=== PATIENT | male | born 1950 | race Caucasian/White ===

== ENCOUNTER → 2017-01-20 | Outpatient (CLI) | payer OTHER, MEDICARE ==
--- NOTE | 2017-01-20 19:10 | ECHOCARDIOGRAM REPORT ---
*NOTICE TO RECEIVING DEMOCRAT AGENCY This information is strictly Confidential and protected under [place] law. [place] law prohibits you from making any further disclosure of this information unless further disclosure is expressly permitted by the written consent of the person to whom it pertains or is authorized by law. A general authorization for the release of medical or other information is not sufficient for this purpose. Hospital accepts no responsibility if the information is made available to any other person, INCLUDING THE PATIENT. Interpretation Summary * Name: JESSICA POSADA JR Study Date: 01/20/2017 08:27 AM BP: 145/80 mmHg * Patient Location: [facility] [place] HR: 62 * : 1950 (M/d/yyyy) Gender: Male Height: 70 in * Age: 66 yrs Ethnicity: CA Weight: 178 lb * Performed By: Dannielle Moses RDCS * * Reason For Study: LBBB, SOB * BSA: 2.0 m2 * History: SOB, LEFT BUNDLE BRANCH BLOCK * Normal biventricular systolic function. * Mild concentric left ventricular hypertrophy. * Left ventricular diastolic dysfunction. * Normal chamber dimensions. * Trace pulmonic and mitral regurgitation. * No significant valvular abnormalities. Procedure Details * A complete two-dimensional transthoracic echocardiogram was performed (2D, M-mode, Doppler and color flow Doppler). Left Ventricle * The left ventricle is normal in size. * There is mild concentric left ventricular hypertrophy. * Ejection Fraction = 55-60%. * Left ventricular systolic function is low normal. * A full diastolic examination was done with clinical findings of Class I diastolic dysfunction. * Septal motion is consistent with conduction abnormality. * The left ventricular wall motion is normal. Right Ventricle * The right ventricle is normal in size and function. Atria * The left atrial size is normal. * Right atrial size is normal. * No ASD detected; PFO is not assessed. Mitral Valve * The mitral valve is normal. * There is no mitral valve stenosis. * There is trace mitral regurgitation. Tricuspid Valve * The tricuspid valve is normal. * There is no tricuspid stenosis. * No tricuspid regurgitation. Aortic Valve * The aortic valve is trileaflet. * The aortic valve opens well. * Aortic stenosis is absent. * No aortic regurgitation is present. Pulmonic Valve * The pulmonic valve is not well visualized. * Trace pulmonic valvular regurgitation. Great Vessels * The aortic root is normal size. Pericardium/Pleural * There is no pericardial effusion. Great Vessels * Normal inferior vena cava diameter and respiratory variation suggests normal central venous pressure. MMode 2D Measurements and Calculations IVSd 1.2 cm IVSs 1.2 cm LVIDd 4.8 cm LVIDs 3.5 cm LVPWd 1.2 cm LVPWs 1.6 cm IVS/LVPW 1.0 FS 28.6 % EDV(Teich) 110.0 ml ESV(Teich) 49.5 ml EF(Teich) 54.9 % EDV(cubed) 113.8 ml ESV(cubed) 41.5 ml EF(cubed) 63.6 % % IVS thick 4.2 % % LVPW thick 31.4 % LV mass(C)d 220.2 grams LV mass(C)dI 110.8 grams/m\S\2 LV mass(C)s 171.0 grams LV mass(C)sI 86.1 grams/m\S\2 SV(Teich) 60.4 ml SI(Teich) 30.4 ml/m\S\2 SV(cubed) 72.3 ml SI(cubed) 36.4 ml/m\S\2 Ao root diam 3.1 cm Ao root area 7.7 cm\S\2 LA dimension 3.5 cm LA/Ao 1.1 LVAd ap4 30.0 cm\S\2 LVLd ap4 8.7 cm EDV(MOD-sp4) 86.6 ml EDV(sp4-el) 87.5 ml LVAs ap4 17.2 cm\S\2 LVLs ap4 6.9 cm ESV(MOD-sp4) 38.4 ml ESV(sp4-el) 36.2 ml EF(MOD-sp4) 55.7 % EF(sp4-el) 58.7 % LVAd ap2 30.3 cm\S\2 LVLd ap2 8.8 cm EDV(MOD-sp2) 87.1 ml EDV(sp2-el) 88.8 ml LVAs ap2 18.1 cm\S\2 LVLs ap2 7.3 cm ESV(MOD-sp2) 39.9 ml ESV(sp2-el) 38.2 ml EF(MOD-sp2) 54.2 % EF(sp2-el) 57.0 % LVLd %diff 0.59 % EDV(MOD-bp) 87.0 ml LVLs %diff 4.2 % ESV(MOD-bp) 40.2 ml EF(MOD-bp) 53.8 % SV(MOD-sp4) 48.3 ml SI(MOD-sp4) 24.3 ml/m\S\2 SV(MOD-sp2) 47.2 ml SI(MOD-sp2) 23.8 ml/m\S\2 SV(MOD-bp) 46.8 ml SI(MOD-bp) 23.6 ml/m\S\2 SV(sp4-el) 51.3 ml SI(sp4-el) 25.8 ml/m\S\2 SV(sp2-el) 50.6 ml SI(sp2-el) 25.5 ml/m\S\2 Doppler Measurements and Calculations MV E max massiel 69.0 cm/sec MV A max massiel 79.1 cm/sec MV E/A 0.87 MV dec time 0.25 sec Ao V2 max 80.9 cm/sec Ao max PG 2.6 mmHg Ao max PG (full) 0.40 mmHg LV V1 max PG 2.2 mmHg LV V1 max 74.5 cm/sec TR max massiel 155.0 cm/sec
== END | disposition home or self-care (01) ==
LOC: C.CPL 08:09
PROVIDERS: ATTEND Family Medicine
DX: R06.02 Shortness of breath (principal); I44.7 Left bundle-branch block, unspecified

== ENCOUNTER → 2017-05-26 | Outpatient (CLI) | payer OTHER, MEDICARE ==
--- NOTE | 2017-05-26 11:05 | DIAGNOSTIC IMAGING REPORT ---
CT OF THE ABDOMEN WITH AND WITHOUT CONTRAST LIVER PROTOCOL CLINICAL HISTORY: Hepatic granuloma. COMPARISON STUDY: No previous studies for comparison. TECHNIQUE: Unenhanced, arterial and portal venous phase imaging of the abdomen was performed. Injection of 93 cc Optiray 320 IV was uneventful. FINDINGS: Liver morphology is normal. No hepatic lesions are identified. The main, left and right portal veins are patent. The spleen, adrenal glands, kidneys and pancreas are normal. There is no biliary or pancreatic ductal dilatation. There is extensive atherosclerotic plaque of the abdominal aorta. The abdominal aorta measures up to 2.5 cm. The caliber and wall thickness of visualized small and large bowel are normal. There is no abdominal ascites or lymphadenopathy. No suspicious skeletal lesions are identified. IMPRESSION: 1. Unremarkable CT of the liver. No hepatic lesions. 2. No biliary or pancreatic ductal dilatation. 3. Extensive atherosclerotic plaque of the abdominal aorta which is ectatic but not aneurysmally dilated. Electronically signed by: Pranay Vega M.D. 05/26/2017 11:04 AM Dictated Date/Time: 05/26/2017 10:31 AM
== END ==
LOC: C.CTS 09:46
PROVIDERS: ATTEND Registered Nurse
DX: K75.3 Granulomatous hepatitis, not elsewhere classified (principal)

== ENCOUNTER → 2017-06-04 | Day surgery (SDC) | payer OTHER, MEDICARE ==
[2017-05-21 07:36] VITALS: Ht 179.1 cm; Wt 76.8 kg
[~2017-06-04] VITALS: Ht 179.1 cm; Wt 76.8 kg
[~2017-06-04] MED LIST: FENTANYL CITRATE INJ 50 MCG/1 ML 2 ML VIAL ONE; LIDOCAINE HCL 2% 2 ML VIAL (20MG/ML) ONE; MIDAZOLAM HCL 1 MG/ML 2ML VIAL ONE; OPTIRAY 320 IV PRN; PROPOFOL IV EMULSION 10 MG/ML 20 ML VIAL IV ONE
--- NOTE | 2017-06-04 13:05 | Endo History and Physical ---
History & Physical Date of Service: Jun 04, 2017. Chief Complaint: SCREENING, RECENT ENTERITIS/INFECTION OF BOWEL Referring Physician: Dr. Dominique History of Present Illness 67 yo CM who presents for screening colonoscopy and push enteroscopy secondary to recent enteritis. Past Surgical History Hx Cardiac Surgery: No Hx Internal Defibrillator: No Hx Pacemaker: No Hx Abdominal Surgery: No Hx of Implantable Prosthesis: No Hx Post-Op Nausea and Vomiting: No Hx Cancer Surgery: No Hx Thoracic Surgery: No Hx Orthopedic: Yes (LT/RT RCR, LT CTR) Hx Urinary Tract Surgery: No Family History Colon CA Social History Smoking Status: Never Smoker Hx Substance Use: No Hx Alcohol Use: Yes (4 BEERS/DAY) Allergies Coded Allergies: No Known Allergies (Unverified , 06/04/17) Current Medications Reported Home Medications Medications Dose Route/Sig Max Daily Dose Days Date Category [None] 06/04/17 Reported Vital Signs Weight (Kilograms): 76.82 Height (Feet): 5 Height (Inches): 10.5 Date Time Temp Pulse Resp B/P (MAP) Pulse Ox O2 Delivery O2 Flow Rate FiO2 06/04/17 11:58 36.6 63 20 141/71 (94) 97 Room Air Physical Exam General Appearance: WD/WN, no apparent distress Respiratory/Chest: Auscultation: breath sounds normal Cardiovascular: Heart Auscultation: RRR Abdomen: Bowel Sounds: normal Inspection & Palpation: soft, non-distended, no tenderness, guarding & rebound Assessment and Plan Assessment: 67 yo CM who presents for screening colonoscopy and push enteroscopy secondary to recent enteritis. Plan: Proceed with Push enteroscopy and colonoscopy.
--- NOTE | 2017-06-04 13:34 | Discharge Instructions ---
Endoscopy Patient Instructions Date / Procedure(s) Performed Jun 04, 2017. Colonoscopy Allergy Information Coded Allergies: No Known Allergies (Unverified , 06/04/17) Discharge Date / Findings Jun 04, 2017. EGD: Esophageal stricture s/p dilation with passage of endoscope, Mid- esophageal biopsies, Gastric antrum biopises, Duodenitis s/p biopsies Colonoscopy: Random colon biopsies, Diverticulosis, Internal hemorrhoids Medication Instructions 1) Start Protonix 40mg by mouth each morning 1/2 hour prior to breakfast. Provider Instructions Activity Restrictions - No exercising or heavy lifting for 24 hours. - Do not drink alcohol the day of the procedure. - Do not drive a car or operate machinery until the day after the procedure. - Do not make any important decisions or sign important papers in 24 hours after the procedure. Following Day: - Return to full activity which may include returning to work/school. Diet Start your diet with liquids and light foods (jello, soup, juice, toast). Then eat your usual diet if not nauseated. Treatment For Common After Affects For mild abdominal pain, bloating, or excessive gas: - Rest - Eat lightly - Lie on right side Follow-Up Information Follow-up with BERNA Perez as scheduled Anesthesia Information What You Should Know You have had a procedure that required some medicine to reduce anxiety and discomfort. This treatment is called moderate sedation. After receiving the treatment, you may be sleepy, but you will be able to breathe on your own. The effects of the treatment may last for several hours. Follow these instructions along with Activity/Diet recommendations noted above: * Do NOT do anything where dizziness or clumsiness would be dangerous. * Rest quietly at home today, then you can be up and about tomorrow. * Have a responsible person stay with you the rest of today. * You may have had an I.V. today. If so, you may take the dressing off later today. Recommendations Call your doctor if: * Trouble breathing * Continuous vomiting for more than 24 hours * Temperature above 101 degrees * Severe abdominal pain or bloating * Pain not relieved by pain medicine ordered * There is increased drainage or redness from any incision * A large amount of rectal bleeding greater than 2-3 tablespoons. (If you had a polyp/s removed or have hemorrhoids, a small amount of blood - from the rectum is to be expected.) * You have any unanswered questions or concerns. IN THE EVENT OF A SERIOUS EMERGENCY, GO TO THE NEAREST EMERGENCY ROOM Your discharge instructions were prepared by provider Matthew Awan. Patient Instructions Signature Page Donny Tejeda Patient (or Guardian) Signature/Date: I have read and understand the instructions given to me by my caregivers. Caregiver/RN/Doctor Signature/Date: The above-named patient and/or guardian has received patient instructions on this date. + Original Patient Signature Page (only) stays with chart. Please make copy for patient.
--- NOTE | 2017-06-04 13:40 | GI REPORT ---
Procedure Date: 06/04/2017 12:43 PM Procedure: Upper GI endoscopy Indications: Enteritis Medicines: Monitored Anesthesia Care Complications: No immediate complications. Estimated Blood Loss: Estimated blood loss: none. Procedure: Pre-Anesthesia Assessment: - Prior to the procedure, a History and Physical was performed, and patient medications and allergies were reviewed. The patient's tolerance of previous anesthesia was also reviewed. The risks and benefits of the procedure and the sedation options and risks were discussed with the patient. All questions were answered, and informed consent was obtained. Prior Anticoagulants: The patient has taken no previous anticoagulant or antiplatelet agents. ASA Grade Assessment: II - A patient with mild systemic disease. After reviewing the risks and benefits, the patient was deemed in satisfactory condition to undergo the procedure. After obtaining informed consent, the endoscope was passed under direct vision. Throughout the procedure, the patient's blood pressure, pulse, and oxygen saturations were monitored continuously. The scope was introduced through the mouth, and advanced to the fourth part of duodenum. The upper GI endoscopy was accomplished without difficulty. The patient tolerated the procedure well. Findings: One moderate benign-appearing, intrinsic stenosis was found. This measured 1 cm (inner diameter) x less than one cm (in length) and was traversed. The stricture was dilated with passage of pediatric colonoscope. Multiple biopsies were obtained with cold forceps for histology in the middle third of the esophagus. The entire examined stomach was normal. Biopsies were taken with a cold forceps for Helicobacter pylori testing. Multiple localized erosions without bleeding were found in the first part of the duodenum. Biopsies were taken with a cold forceps for histology. Impression: - Benign-appearing esophageal stenosis. - Normal stomach. Biopsied. - Duodenal erosions without bleeding. Biopsied. - Multiple biopsies were obtained in the middle third of the esophagus. Recommendation: - Resume previous diet. - Continue present medications. - Await pathology results. - Return to GI office as previously scheduled. Matthew Awan, DO 06/04/2017 1:39:28 PM This report has been signed electronically. Note Initiated On: 06/04/2017 12:43 PM I attest to the content of the Intraoperative Record and orders documented therein, exceptions below
--- NOTE | 2017-06-04 13:43 | GI REPORT ---
Procedure Date: 06/04/2017 12:46 PM Procedure: Colonoscopy Indications: Screening for colorectal malignant neoplasm Medicines: Monitored Anesthesia Care Complications: No immediate complications. Estimated Blood Loss: Estimated blood loss: none. Procedure: Pre-Anesthesia Assessment: - Prior to the procedure, a History and Physical was performed, and patient medications and allergies were reviewed. The patient's tolerance of previous anesthesia was also reviewed. The risks and benefits of the procedure and the sedation options and risks were discussed with the patient. All questions were answered, and informed consent was obtained. Prior Anticoagulants: The patient has taken no previous anticoagulant or antiplatelet agents. ASA Grade Assessment: II - A patient with mild systemic disease. After reviewing the risks and benefits, the patient was deemed in satisfactory condition to undergo the procedure. After I obtained informed consent, the scope was passed under direct vision. Throughout the procedure, the patient's blood pressure, pulse, and oxygen saturations were monitored continuously. The scope was introduced through the anus and advanced to the terminal ileum. The colonoscopy was performed without difficulty. The patient tolerated the procedure well. The quality of the bowel preparation was good. The terminal ileum, ileocecal valve, appendiceal orifice, and rectum were photographed. Findings: Multiple small-mouthed diverticula were found in the sigmoid colon. Non-bleeding internal hemorrhoids were found during retroflexion. The hemorrhoids were small. Several random biopsies were obtained with cold forceps for histology in the entire colon. Impression: - Diverticulosis in the sigmoid colon. - Non-bleeding internal hemorrhoids. - Several random biopsies were obtained in the entire colon. Recommendation: - Resume previous diet. - Continue present medications. - Repeat colonoscopy for surveillance based on pathology results. - Return to primary care physician as previously scheduled. Matthew Awan DO 06/04/2017 1:42:29 PM This report has been signed electronically. Note Initiated On: 06/04/2017 12:46 PM I attest to the content of the Intraoperative Record and orders documented therein, exceptions below
--- NOTE | 2017-06-04 13:46 | Anesthesiology Progress Note ---
Anesthesia Post Op Note Date & Time Jun 04, 2017 at 13:46 Vital Signs Pain Intensity: 0 Vital Signs Past 12 Hours Date Time Temp Pulse Resp B/P (MAP) Pulse Ox O2 Delivery O2 Flow Rate FiO2 06/04/17 13:38 71 16 108/66 (80) 95 Room Air 06/04/17 11:58 36.6 63 20 141/71 (94) 97 Room Air Notes Mental Status: alert / awake / arousable, participated in evaluation Pt Amnestic to Procedure: Yes Nausea / Vomiting: adequately controlled Pain: adequately controlled Airway Patency, RR, SpO2: stable & adequate BP & HR: stable & adequate Hydration State: stable & adequate Anesthetic Complications: no major complications apparent
[2017-06-04 14:08] VITALS: BP 107/64; PULSE 54; O2SAT 96
== END | disposition home or self-care (01) ==
LOC: C.ACU 11:41
PROVIDERS: ATTEND Internal Medicine
DX: K52.9 Noninfective gastroenteritis and colitis, unspecified (principal); Z86.19 Personal history of other infectious and parasitic diseases; Z80.0 Family history of malignant neoplasm of digestive organs; K57.30 Diverticulosis of large intestine without perforation or abscess without bleeding; K64.8 Other hemorrhoids; K26.9 Duodenal ulcer, unspecified as acute or chronic, without hemorrhage or perforation; K22.2 Esophageal obstruction; K29.70 Gastritis, unspecified, without bleeding; I10 Essential (primary) hypertension; K44.9 Diaphragmatic hernia without obstruction or gangrene; M19.90 Unspecified osteoarthritis, unspecified site

== ENCOUNTER → 2017-08-02 | Outpatient (CLI) | payer OTHER, MEDICARE ==
[2017-08-02 09:44] LABS: BASO % 0.4 %; BASO ABS # 0.02 K/uL (0-0.2); COMPLETE YES; EOS % 4.9 %; HEMATOCRIT 44.3 % (42-52); LYMPH % 21.9 %; LYMPH ABS # 0.98 K/uL (1.2-3.4); MEAN CELL VOLUME 95.1 fL (80-100); MEAN CORPUSCULAR HEMOGLOBIN 33.5 pg (25-34); MEAN CORPUSCULAR HGB CONC 35.2 g/dl (32-36); MEAN PLATELET VOLUME 9.9 fL (7.4-10.4); MONO % 5.8 %; PLATELET COUNT 139 K/uL (130-400); RED BLOOD COUNT 4.66 M/uL (4.7-6.1); WHITE BLOOD COUNT 4.48 K/uL (4.8-10.8)
[2017-08-02 10:16] LABS: ALT/SGPT 31 U/L (12-78); AST/SGOT 23 U/L (15-37); BLOOD UREA NITROGEN 14 mg/dl (7-18); BUN/CREATININE RATIO 16.6 (10-20); CALCIUM 8.5 mg/dl (8.5-10.1); CARBON DIOXIDE 24 mmol/L (21-32); CHLORIDE 111 mmol/L (98-107); CREATININE 0.83 mg/dl (0.60-1.40); GLUCOSE 113 mg/dl (70-99); POTASSIUM 4.2 mmol/L (3.5-5.1); SODIUM 140 mmol/L (136-145)
[2017-08-02 10:19] LABS: ALB/GLOB RATIO 1.2 (0.9-2); ALKALINE PHOSPHATASE 79 U/L (45-117); C-REACTIVE PROTEIN < 0.29 mg/dl (0-0.29)
== END | disposition home or self-care (01) ==
LOC: C.LAB 08:42
PROVIDERS: ATTEND Internal Medicine
DX: A04.8 Other specified bacterial intestinal infections (principal); K56.69 Other intestinal obstruction; K75.3 Granulomatous hepatitis, not elsewhere classified